=== PATIENT | male | born 1955 | race Caucasian/White ===

== ENCOUNTER 2021-08-01 18:39 | Emergency (ER) | payer MEDICARE, OTHER ==
[~2021-08-01] VITALS: Ht 177.8 cm; Wt 77.2 kg
[2021-08-01 19:07] VITALS: BP 152/87
== END 2021-08-01 22:50 | disposition home or self-care (01) ==
LOC: EMS 18:50
DX: F07.81 Postconcussional syndrome (principal); I10 Essential (primary) hypertension; J44.9 Chronic obstructive pulmonary disease, unspecified; F17.210 Nicotine dependence, cigarettes, uncomplicated; Z88.8 Allergy status to other drugs, medicaments and biological substances; W18.39XA Other fall on same level, initial encounter; Y93.89 Activity, other specified; Y92.89 Other specified places as the place of occurrence of the external cause; Y99.8 Other external cause status
CPT/HCPCS: 70450; 99284

== ENCOUNTER 2024-04-10 09:25 | Emergency (ER) | payer MEDICARE, OTHER ==
[~2024-04-10] VITALS: Ht 180.3 cm; Wt 97.0 kg
[~2024-04-10 09:25] MED LIST: ACET-66 PO; ASPI-1444 PO; ATOR40TA71 PO; BUDE10.22 IH; CARB-225 PO; CEPH-558 PO; DIVA-153 PO; FLUT16SP NASAL; GABA-1181 PO; IPRA4AER IH; LISI10TA24 PO; METO-408 PO; OLAN10TA74 PO; OXYB10TA42 PO; PANT-31 PO; PRAM0.129 PO; TAMS0.4C94 PO
[2024-04-10] MEDS: PERTUSS(ACELL),DIPH,TET/PF 0.5 ML SYRINGE [ADULT] IM. ONE (10:12)
[2024-04-10 11:22] VITALS: TEMP 98
[2024-04-10 13:07] VITALS: BP 149/85; PULSE 62; RESP 16; O2SAT 97
== END 2024-04-10 13:11 | disposition home or self-care (01) ==
LOC: EMS 09:25
DX: S51.801A Unspecified open wound of right forearm, initial encounter (principal); I10 Essential (primary) hypertension; F20.9 Schizophrenia, unspecified; J44.9 Chronic obstructive pulmonary disease, unspecified; F17.210 Nicotine dependence, cigarettes, uncomplicated; Z88.6 Allergy status to analgesic agent; Z91.013 Allergy to seafood; Z79.51 Long term (current) use of inhaled steroids; Z79.82 Long term (current) use of aspirin; Z23 Encounter for immunization; Z79.899 Other long term (current) drug therapy; W22.8XXA Striking against or struck by other objects, initial encounter; Y93.89 Activity, other specified; Y92.89 Other specified places as the place of occurrence of the external cause; Y99.8 Other external cause status
CPT/HCPCS: 90471; 90715; 99283

== ENCOUNTER 2024-07-13 01:52 | Emergency (ER) | payer MEDICARE, OTHER ==
[~2024-07-13] VITALS: Ht 180.3 cm; Wt 84.1 kg
[2024-07-13] MEDS: PERTUSS(ACELL),DIPH,TET/PF 0.5 ML SYRINGE [ADULT] IM. ONE (02:26)
[2024-07-13 04:19] VITALS: BP 145/90; PULSE 66; RESP 16; TEMP 98.3; O2SAT 98
== END 2024-07-13 06:57 | disposition home or self-care (01) ==
LOC: EMS 01:52
DX: S51.801A Unspecified open wound of right forearm, initial encounter (principal); F41.9 Anxiety disorder, unspecified; J44.9 Chronic obstructive pulmonary disease, unspecified; I10 Essential (primary) hypertension; F20.9 Schizophrenia, unspecified; F17.290 Nicotine dependence, other tobacco product, uncomplicated; G20.A1 Parkinson's disease without dyskinesia, without mention of fluctuations; Z79.899 Other long term (current) drug therapy; Z79.82 Long term (current) use of aspirin; Z79.51 Long term (current) use of inhaled steroids; Z91.040 Latex allergy status; W19.XXXA Unspecified fall, initial encounter; Y93.89 Activity, other specified; Y92.89 Other specified places as the place of occurrence of the external cause; Y99.8 Other external cause status
CPT/HCPCS: 70450; 90471; 90715; 99285